=== PATIENT | female | born 1985 | race Two or more races ===

== ENCOUNTER 2023-05-20 14:46 | Inpatient (IN) | payer MEDICAID, OTHER ==
[~2023-05-20] VITALS: Ht 172.7 cm; Wt 64.0 kg
[2023-05-20 15:37] LABS: Hematocrit 40.1 % (41.0-53.0); Hemoglobin 13.5 g/dL (13.5-17.5); Mean Corpuscular Hemoglobin 34.2 pg (28.0-32.0); Mean Corpuscular Hgb Conc. 33.7 g/dL (32.0-36.0); Mean Corpuscular Volume 101.3 fL (80.0-100.0); Red Blood Cells 3.96 10^6/uL (4.5-5.90); Red Cell Distribution Width 14.2 % (11.8-14.3); White Blood Cell 10.2 10^3/uL (4.4-10.8)
[2023-05-20 15:40] LABS: Basophils % (manual) 0 (0.0-2.0); Blast Cells 0; Metamyelocytes % 0; Myelocytes % 0; Promyelocytes % 0; Reactive Lymphocytes 0
[2023-05-20] MEDS: ONDANSETRON HCL 4 MG/2 ML VIAL IM ONE (15:54)
[2023-05-20 15:56] LABS: Alanine Aminotransferase 19 U/L (7-40); Albumin 3.6 g/dL (3.2-4.8); Alkaline Phosphatase 121 U/L (46-116); Anion Gap 18 (5-15); Aspartate Aminotransferase 35 U/L (13-40); Calcium 8.9 mg/dL (8.7-10.4); Carbon Dioxide 16 mmol/L (20-30); Chloride 96 mmol/L (98-107); Glucose 91 mg/dL (74-106); INR 1.92 (0.9-1.15); Lipase 133 U/L (12-53); Potassium 4.1 mmol/L (3.5-5.1); Prothrombin Time 19.3 sec (9.3-11.8); Sodium 130 mmol/L (136-145)
[2023-05-20 15:57] LABS: Total Protein 7.7 g/dL (5.7-8.2)
[2023-05-20 16:00] LABS: BUN/Creatinine Ratio 7.4 (10.0-20.0); Blood Urea Nitrogen < 5 mg/dL (9-23)
[2023-05-20] MEDS: SODIUM CHLORIDE 0.9% 1,000 ML IVB ONE (16:00)
[2023-05-20] MEDS: LORazepam 2MG/ML-1ML VIAL IV ONE (16:02)
[2023-05-20] MEDS: PANTOPRAZOLE 40 MG/10 ML VIAL INJ IV ONE (16:02)
[2023-05-20] MEDS: HYDROmorphone HCL 2 MG/ML VL/or syr IM ONE (16:04)
[2023-05-20] MEDS: METOCLOPRAMIDE HCL 5MG/ml INJ 2ml VIAL IV ONE (16:07)
[2023-05-20 16:30] LABS: Band Neutrophils % (manual) 2; Lymphocytes % (manual) 8 (10.0-50.0); Monocytes % (manual) 4 (0-12)
[2023-05-20 16:31] LABS: Eosinophils % (manual) 3 (0-7); Macrocytosis Slight; Platelet Estimate Adequate
[2023-05-20] MEDS: IOHEXOL 300 MG/ML 100ML BOTTLE IJ ONE (16:38)
[2023-05-20 18:04] LABS: Urine Bacteria None Seen /hpf (None Seen)
[2023-05-20 18:11] LABS: Urine Blood Negative /uL (Negative); Urine Clarity Clear (Clear); Urine Color Light-Orange (Yellow); Urine Mucus FEW (None Seen); Urine Protein, UAD 1+ (Negative); Urine Urobilinogen Normal (Negative); Urine WBC 2 /hpf (0 - 5)
[2023-05-20 18:15] LABS: Urine Specific Gravity > 1.050 (1.001-1.035)
[2023-05-20] MEDS: PIPERACILLIN-TAZO 4.5GM 100 ML IV ONE (19:02)
[2023-05-20] MEDS ORDERED: LORazepam 2MG/ML-1ML VIAL IV PRN (21:45)
[2023-05-20] MEDS ORDERED: ACETAMINOPHEN 325 MG TAB PO PRN (21:45)
[2023-05-20] MEDS ORDERED: DOCUSATE SOD 100 MG CAP PO PRN (21:45)
[2023-05-20] MEDS: SODIUM CHLORIDE 0.9% 1,000 ML IV SCH (22:25)
[2023-05-20] MEDS: levETIRAcetam 500 mg/100ml 100 ML IV SCH (22:43)
[2023-05-20] MEDS: HYDROcodone-ACET 5/325MG TAB PO PRN (22:47)
[2023-05-20] MEDS: METOCLOPRAMIDE HCL 5MG/ml INJ 2ml VIAL IV PRN (22:49)
[2023-05-20] MEDS: MAGNESIUM SULFATE 1GM/100ML 100 ML IV ONE (23:11)
[2023-05-20] MEDS: metroNIDAZOLE 500MG/100ML 100 ML IV SCH (23:15)
[2023-05-20] MEDS ORDERED: MORPHINE SULFATE INJ 2 MG/ml SYRG IV PRN (23:30)
[2023-05-20] MEDS ORDERED: NITROGLYCERIN 0.4 MG SL TAB SL PRN (23:30)
[2023-05-21 06:50] LABS: Basophils # (auto) 0 10 ^3/uL (0-0.2); Eosinophils % (auto) 8.6 % (0.0-7.0); Lymphocytes # (auto) 0.9 10 ^3/uL (0.4-5.4); Monocytes # (auto) 0.6 10 ^3/uL (0-1.3); Nucleated Red Blood Cells % 0.1 %
[2023-05-21 06:56] LABS: Alanine Aminotransferase 13 U/L (7-40); Albumin 3.2 g/dL (3.2-4.8); Alkaline Phosphatase 99 U/L (46-116); Anion Gap 13 (5-15); Aspartate Aminotransferase 26 U/L (13-40); Basophils % (auto) 0.3 % (0.0-2.0); Bilirubin, Total 0.8 mg/dL (0.2-1.0); Calcium 8.2 mg/dL (8.7-10.4); Carbon Dioxide 18 mmol/L (20-30); Chloride 100 mmol/L (98-107); Eosinophils # (auto) 0.6 10 ^3/uL (0-0.8); Glucose 103 mg/dL (74-106); Hematocrit 36.5 % (36.0-46.0); Hemoglobin 12.2 g/dL (12.2-16.2); Lymphocytes % (auto) 14.7 % (10.0-50.0); Mean Corpuscular Hemoglobin 34.4 pg (28.0-32.0); Mean Corpuscular Hgb Conc. 33.6 g/dL (32.0-36.0); Mean Corpuscular Volume 102.5 fL (80.0-100.0); Monocytes % (auto) 9.1 % (0.0-12.0); Neutrophils # (auto) 4.3 10 ^3/uL (1.6-8.6); Neutrophils % (auto) 67.3 % (37.0-80.0); Potassium 4.1 mmol/L (3.5-5.1); Red Blood Cells 3.56 10^6/uL (4.0-5.20); Red Cell Distribution Width 14.2 % (11.8-14.3); Sodium 131 mmol/L (136-145); White Blood Cell 6.4 10^3/uL (4.4-10.8)
[2023-05-21 06:57] LABS: Total Protein 6.9 g/dL (5.7-8.2)
[2023-05-21 06:58] LABS: BUN/Creatinine Ratio 8.3 (10.0-20.0); Blood Urea Nitrogen < 5 mg/dL (9-23)
[2023-05-21 08:40] VITALS: PULSE 113; RESP 16; O2SAT 100
[2023-05-21] MEDS: HYDROmorphone HCL 2 MG/ML VL/or syr IV PRN (08:43)
[2023-05-21] MEDS: cefTRIAXone 1GM/50ML D5W 50 ML IV SCH (11:07)
[2023-05-21] MEDS: PANTOPRAZOLE 40 MG/10 ML VIAL INJ IV SCH (11:07)
[2023-05-21] MEDS: GADOTERATE MEG 10 MMOL/20ml INJ (0.5MMOL/ml) IV ONE (12:51)
[2023-05-21] MEDS: PHYTONADIONE (VIT K)10 MG/ML 1ML VIAL SUBCUT ONE (12:59)
[2023-05-21 19:30] VITALS: PULSE 122; RESP 19; O2SAT 99
[2023-05-21 22:54] VITALS: PULSE 102; RESP 21; O2SAT 99
[2023-05-21] MEDS ORDERED: HYDR1TAB97 PO (23:16)
[2023-05-21] MEDS ORDERED: LEVE500T3 PO (23:16)
[2023-05-21] MEDS ORDERED: TRAM50TA2 PO (23:16)
[2023-05-21] MEDS ORDERED: DROS4TAB PO (23:16)
[2023-05-21] MEDS ORDERED: ACET650T12 PO (23:16)
[2023-05-22] VITALS (7 sets, daily range): BP systolic 102–117; BP diastolic 63–79; PULSE 93–107; RESP 14–20; TEMP 96.6–98; O2SAT 97–100
[2023-05-22 15:00] LABS: COVID19 ANTIGEN SOFIA FIA POSITIVE (NEGATIVE)
[2023-05-22] MEDS: DROSPIRENONE 4 MG PO SCH (16:26)
[2023-05-23] VITALS (8 sets, daily range): BP systolic 92–153; BP diastolic 56–75; PULSE 71–100; RESP 12–20; TEMP 97.4–98.3; O2SAT 94–100
[2023-05-23 05:39] LABS: Basophils # (auto) 0 10 ^3/uL (0-0.2); Eosinophils # (auto) 0.4 10 ^3/uL (0-0.8); Lymphocytes # (auto) 0.9 10 ^3/uL (0.4-5.4); Monocytes # (auto) 0.3 10 ^3/uL (0-1.3); Neutrophils # (auto) 1.5 10 ^3/uL (1.6-8.6); Red Blood Cells 2.95 10^6/uL (4.0-5.20); White Blood Cell 3.2 10^3/uL (4.4-10.8)
[2023-05-23 05:42] LABS: Basophils % (auto) 1.1 % (0.0-2.0); Eosinophils % (auto) 12.1 % (0.0-7.0); Hematocrit 29.7 % (36.0-46.0); Hemoglobin 10.2 g/dL (12.2-16.2); Lymphocytes % (auto) 28.5 % (10.0-50.0); Mean Corpuscular Hemoglobin 34.5 pg (28.0-32.0); Mean Corpuscular Hgb Conc. 34.3 g/dL (32.0-36.0); Mean Corpuscular Volume 100.8 fL (80.0-100.0); Monocytes % (auto) 9.7 % (0.0-12.0); Neutrophils % (auto) 48.6 % (37.0-80.0); Nucleated Red Blood Cells % 0.2 %; Red Cell Distribution Width 13.9 % (11.8-14.3)
[2023-05-23 05:45] LABS: Alanine Aminotransferase 13 U/L (7-40); Albumin 2.7 g/dL (3.2-4.8); Alkaline Phosphatase 76 U/L (46-116); Anion Gap 6 (5-15); Aspartate Aminotransferase 22 U/L (13-40); Bilirubin, Total 0.5 mg/dL (0.2-1.0); Carbon Dioxide 23 mmol/L (20-30); Chloride 105 mmol/L (98-107); Glucose 116 mg/dL (74-106); Potassium 2.8 mmol/L (3.5-5.1); Sodium 134 mmol/L (136-145); Total Protein 5.6 g/dL (5.7-8.2)
[2023-05-23 06:18] LABS: BUN/Creatinine Ratio 13.9 (10.0-20.0); Blood Urea Nitrogen < 5 mg/dL (9-23)
[2023-05-23] MEDS: ASCORBIC ACID 500 MG TAB PO SCH (22:47)
[2023-05-24] VITALS (8 sets, daily range): BP systolic 95–126; BP diastolic 56–76; PULSE 69–98; RESP 17–20; TEMP 97.4–98.3; O2SAT 98–99
[2023-05-24] MEDS: POTASSIUM CHL 20 Meq TABLET PO ONE (12:20)
[2023-05-24] MEDS: ZINC SULFATE 220mg CAP or TAB PO SCH (21:32)
[2023-05-24] MEDS: CHOLECALCIFEROL (VITD3) 1,000UNIT=25mCg TAB PO SCH (21:32)
[2023-05-25] VITALS (7 sets, daily range): BP systolic 103–110; BP diastolic 56–71; PULSE 78–97; RESP 16–18; TEMP 97.5–98; O2SAT 97–100
[2023-05-26] VITALS (8 sets, daily range): BP systolic 96–107; BP diastolic 59–76; PULSE 70–93; RESP 14–21; TEMP 97.3–99.1; O2SAT 95–100
[2023-05-26 13:49] LABS: Basophils # (auto) 0 10 ^3/uL (0-0.2); Eosinophils # (auto) 0.5 10 ^3/uL (0-0.8); Lymphocytes # (auto) 1.3 10 ^3/uL (0.4-5.4); Monocytes # (auto) 0.6 10 ^3/uL (0-1.3)
[2023-05-26 13:52] LABS: Basophils % (auto) 0.9 % (0.0-2.0); Eosinophils % (auto) 9.5 % (0.0-7.0); Hematocrit 34.5 % (36.0-46.0); Hemoglobin 11.5 g/dL (12.2-16.2); Lymphocytes % (auto) 28.1 % (10.0-50.0); Mean Corpuscular Hemoglobin 34.4 pg (28.0-32.0); Mean Corpuscular Hgb Conc. 33.2 g/dL (32.0-36.0); Mean Corpuscular Volume 103.6 fL (80.0-100.0); Monocytes % (auto) 12.7 % (0.0-12.0); Neutrophils # (auto) 2.3 10 ^3/uL (1.6-8.6); Neutrophils % (auto) 48.8 % (37.0-80.0); Nucleated Red Blood Cells % 0.3 %; Red Blood Cells 3.33 10^6/uL (4.0-5.20); Red Cell Distribution Width 14.3 % (11.8-14.3); White Blood Cell 4.7 10^3/uL (4.4-10.8)
[2023-05-26 14:10] LABS: Alanine Aminotransferase 14 U/L (7-40); Alkaline Phosphatase 66 U/L (46-116); Anion Gap 6 (5-15); Calcium 8.3 mg/dL (8.7-10.4); Carbon Dioxide 24 mmol/L (20-30); Chloride 106 mmol/L (98-107); Glucose 97 mg/dL (74-106); Lipase 47 U/L (12-53); Potassium 3.2 mmol/L (3.5-5.1); Sodium 136 mmol/L (136-145)
[2023-05-26 14:11] LABS: Albumin 2.9 g/dL (3.2-4.8); Aspartate Aminotransferase 24 U/L (13-40); Bilirubin, Total 0.4 mg/dL (0.2-1.0)
[2023-05-26 14:15] LABS: BUN/Creatinine Ratio 11.1 (10.0-20.0); Blood Urea Nitrogen < 5 mg/dL (9-23)
[2023-05-27 01:00] VITALS: BP 105/61; PULSE 78; RESP 14; TEMP 97.7; O2SAT 100
[2023-05-27 05:00] VITALS: BP 96/58; PULSE 103; RESP 18; TEMP 98.1; O2SAT 96
[2023-05-27 08:00] VITALS: BP 103/67; PULSE 82; PULSE 87; RESP 16; TEMP 98; O2SAT 98
[2023-05-27 20:00] VITALS: PULSE 87
[2023-05-27 21:00] VITALS: BP 106/70; PULSE 85; RESP 17; TEMP 97.8; O2SAT 99
[2023-05-28 01:00] VITALS: BP 115/75; PULSE 87; RESP 16; TEMP 98.2; O2SAT 100
[2023-05-28 08:00] VITALS: BP 97/63; PULSE 100; PULSE 94; RESP 16; TEMP 98; O2SAT 96
[2023-05-28 09:00] VITALS: BP 97/63; PULSE 94; RESP 16; TEMP 98; O2SAT 96
[2023-05-28 20:00] VITALS: BP 113/73; PULSE 90; PULSE 95; RESP 17; TEMP 98.4; O2SAT 98
[2023-05-28 21:00] VITALS: BP 113/73; PULSE 94; RESP 17; TEMP 98.4; O2SAT 98
[2023-05-29] VITALS (8 sets, daily range): BP systolic 101–116; BP diastolic 55–71; PULSE 81–102; RESP 16–19; TEMP 97.9–98.3; O2SAT 97–100
[2023-05-29] MEDS: IBUPROFEN 400 MG TAB PO PRN (14:59)
[2023-05-29] MEDS: ACYCLOVIR 400 MG TAB PO SCH (21:59)
[2023-05-30] VITALS (8 sets, daily range): BP systolic 102–112; BP diastolic 59–71; PULSE 77–102; RESP 17–20; TEMP 98.1–98.6; O2SAT 96–100
[2023-05-30 01:05] LABS: Basophils # (auto) 0 10 ^3/uL (0-0.2); Basophils % (auto) 1.2 % (0.0-2.0); Eosinophils # (auto) 0.2 10 ^3/uL (0-0.8); Hematocrit 27.6 % (36.0-46.0); Hemoglobin 9.3 g/dL (12.2-16.2); Mean Corpuscular Hemoglobin 34.4 pg (28.0-32.0); Monocytes # (auto) 0.4 10 ^3/uL (0-1.3); White Blood Cell 2.6 10^3/uL (4.4-10.8)
[2023-05-30 01:07] LABS: Eosinophils % (auto) 8.5 % (0.0-7.0); Lymphocytes % (auto) 37.9 % (10.0-50.0); Mean Corpuscular Hgb Conc. 33.8 g/dL (32.0-36.0); Monocytes % (auto) 14.2 % (0.0-12.0); Neutrophils % (auto) 38.2 % (37.0-80.0); Red Cell Distribution Width 13.4 % (11.8-14.3)
[2023-05-30 01:23] LABS: Albumin 2.7 g/dL (3.2-4.8); Alkaline Phosphatase 54 U/L (46-116); Anion Gap 5 (5-15); Aspartate Aminotransferase 18 U/L (13-40); Bilirubin, Total 0.4 mg/dL (0.2-1.0); Calcium 8.2 mg/dL (8.7-10.4); Carbon Dioxide 27 mmol/L (20-30); Chloride 106 mmol/L (98-107); Glucose 104 mg/dL (74-106); Potassium 2.7 mmol/L (3.5-5.1); Sodium 138 mmol/L (136-145); Total Protein 5.5 g/dL (5.7-8.2)
[2023-05-30 01:28] LABS: Alanine Aminotransferase < 9 U/L (7-40); BUN/Creatinine Ratio 11.6 (10.0-20.0); Blood Urea Nitrogen < 5 mg/dL (9-23)
[2023-05-30] MEDS: HYDROmorphone HCL 2 MG/ML VL/or syr IV PRN ×2 (02:47→15:00)
[2023-05-30] MEDS: POTASSIUM CHL 20 Meq TABLET PO ONE (12:20)
[2023-05-31] VITALS (8 sets, daily range): BP systolic 99–116; BP diastolic 63–78; PULSE 76–98; RESP 17–22; TEMP 97.8–98.2; O2SAT 96–100
[2023-06-01] VITALS (8 sets, daily range): BP systolic 101–124; BP diastolic 59–77; PULSE 75–101; RESP 15–20; TEMP 97.5–98.2; O2SAT 96–99
[2023-06-01] MEDS: metroNIDAZOLE 500MG/100ML 100 ML IV SCH (13:58)
[2023-06-02] VITALS (8 sets, daily range): BP systolic 101–118; BP diastolic 56–78; PULSE 53–102; RESP 16–18; TEMP 98–98.6; O2SAT 93–100
[2023-06-02] MEDS: cefTRIAXone 1GM/50ML D5W 50 ML IV SCH (08:39)
[2023-06-03 06:12] VITALS: BP 97/61; PULSE 89; RESP 19; TEMP 98.1; O2SAT 98
[2023-06-03 08:30] VITALS: PULSE 83; RESP 16
[2023-06-03 09:00] VITALS: BP 98/64; PULSE 83; RESP 19; TEMP 98; O2SAT 96
[2023-06-03 10:59] LABS: Basophils # (auto) 0.1 10 ^3/uL (0-0.2); Monocytes # (auto) 0.4 10 ^3/uL (0-1.3); Monocytes % (auto) 11.8 % (0.0-12.0); Neutrophils # (auto) 1.2 10 ^3/uL (1.6-8.6)
[2023-06-03 11:01] LABS: Basophils % (auto) 1.7 % (0.0-2.0); Eosinophils # (auto) 0.4 10 ^3/uL (0-0.8); Eosinophils % (auto) 11.3 % (0.0-7.0); Hemoglobin 8.5 g/dL (12.2-16.2); Lymphocytes # (auto) 1.2 10 ^3/uL (0.4-5.4); Lymphocytes % (auto) 36.3 % (10.0-50.0); Mean Corpuscular Hemoglobin 33.8 pg (28.0-32.0); Mean Corpuscular Hgb Conc. 32.9 g/dL (32.0-36.0); Mean Corpuscular Volume 102.6 fL (80.0-100.0); Neutrophils % (auto) 38.9 % (37.0-80.0); Nucleated Red Blood Cells % 0.1 %; Red Blood Cells 2.53 10^6/uL (4.0-5.20); Red Cell Distribution Width 13.7 % (11.8-14.3); White Blood Cell 3.2 10^3/uL (4.4-10.8)
[2023-06-03 11:16] LABS: Albumin 2.4 g/dL (3.2-4.8); Alkaline Phosphatase 59 U/L (46-116); Anion Gap 6 (5-15); Aspartate Aminotransferase 18 U/L (13-40); Bilirubin, Total 0.2 mg/dL (0.2-1.0); Calcium 7.9 mg/dL (8.7-10.4); Carbon Dioxide 23 mmol/L (20-30); Chloride 110 mmol/L (98-107); Glucose 114 mg/dL (74-106); Lipase 75 U/L (12-53); Potassium 3.2 mmol/L (3.5-5.1); Sodium 139 mmol/L (136-145); Total Protein 4.9 g/dL (5.7-8.2)
[2023-06-03 11:17] LABS: BUN/Creatinine Ratio 11.6 (10.0-20.0); Blood Urea Nitrogen < 5 mg/dL (9-23)
[2023-06-03 11:18] LABS: Alanine Aminotransferase < 9 U/L (7-40)
[2023-06-03 12:24] VITALS: BP 97/54; PULSE 83; RESP 22; TEMP 98.1; O2SAT 94
[2023-06-03 16:55] VITALS: BP 116/73; PULSE 89; RESP 18; TEMP 97.9; O2SAT 97
[2023-06-03 21:00] VITALS: BP 111/77; PULSE 90; RESP 18; TEMP 98.2; O2SAT 99
[2023-06-04 01:00] VITALS: BP 116/66; PULSE 91; RESP 17; TEMP 98.4; O2SAT 99
[2023-06-04 05:00] VITALS: BP 117/68; PULSE 86; RESP 17; TEMP 98.7; O2SAT 98
[2023-06-04 08:36] VITALS: BP 104/62; PULSE 84; RESP 16; TEMP 97.8; O2SAT 98
[2023-06-04] MEDS: POTASSIUM CHL 20 Meq TABLET PO ONE (10:15)
[2023-06-04 21:00] VITALS: BP 106/65; PULSE 86; RESP 17; TEMP 98.2; O2SAT 99
[2023-06-05] MEDS ORDERED: POTASSIUM CHL 20 Meq TABLET PO SCH (10:00)
== END 2023-06-04 21:10 | disposition short-term general hospital (02) | DRG 282 ==
LOC: ER 14:46 → EDSEX 14:46 → EDBD 14:46 → TELE 23:29 → TELE-WESTW 05-21 22:38 → WEST WING 06-03 10:04
PROVIDERS: ADMIT Nurse Practitioner Family; ATTEND Family Medicine
DX: K85.90 Acute pancreatitis without necrosis or infection, unspecified (principal); U07.1 COVID-19; K74.60 Unspecified cirrhosis of liver; E86.0 Dehydration; G40.909 Epilepsy, unspecified, not intractable, without status epilepticus; R16.1 Splenomegaly, not elsewhere classified; D64.9 Anemia, unspecified; G89.4 Chronic pain syndrome; K76.0 Fatty (change of) liver, not elsewhere classified; K86.2 Cyst of pancreas; E87.6 Hypokalemia; Z88.8 Allergy status to other drugs, medicaments and biological substances; Z87.891 Personal history of nicotine dependence; Z78.9 Other specified health status; Z68.1 Body mass index [BMI] 19.9 or less, adult
CPT/HCPCS: 36415; 71045; 74177; 74183; 76700; 76705; 80053; 81001; 81025; 82150; 82270; 83690; 83735; 85007; 85025; 85027; 85610; 86301; 86850; 86900; 86901; 87040; 87086; 87426; 93005; 93970; 96361; 96365; 96366; 96367; 96372; 96375; C9113; G0378; J2405; J2543; J3430; J3490

== ENCOUNTER 2023-06-07 09:28 | Inpatient (IN) | payer MEDICAID ==
[~2023-06-07] VITALS: Ht 172.7 cm; Wt 54.4 kg
[~2023-06-07 09:28] MED LIST: ACET650T12 PO; DROS4TAB PO; HYDR1TAB97 PO; LEVE500T3 PO; TRAM50TA2 PO
[2023-06-07 17:22] VITALS: RESP 18; O2SAT 100
[2023-06-07] MEDS: HYDROmorphone HCL 2 MG/ML VL/or syr IV ONE (18:38)
[2023-06-07] MEDS ORDERED: PROMETHAZINE HCL 6.25 MG/5 ML ORAL SYRUP PO PRN (19:15)
[2023-06-07] MEDS ORDERED: DOCUSATE SOD 100 MG CAP PO PRN (19:15)
[2023-06-07 20:00] VITALS: PULSE 70; RESP 16
[2023-06-07 21:00] VITALS: BP 107/68; PULSE 70; RESP 17; TEMP 97.6; O2SAT 97
[2023-06-07] MEDS: MELATONIN 5 MG TAB PO SCH (21:59)
[2023-06-07] MEDS: levETIRAcetam 500 MG TAB PO SCH (21:59)
[2023-06-07] MEDS: HYDROmorphone HCL 2 MG/ML VL/or syr IV PRN (23:17)
[2023-06-07] MEDS: METOCLOPRAMIDE HCL 5MG/ml INJ 2ml VIAL IV SCH (23:45)
[2023-06-08] VITALS (7 sets, daily range): BP systolic 100–112; BP diastolic 53–74; PULSE 69–88; RESP 16–18; TEMP 36.8; O2SAT 97–98
[2023-06-08 06:18] LABS: Basophils # (auto) 0.1 10 ^3/uL (0-0.2); Eosinophils # (auto) 0.2 10 ^3/uL (0-0.8); Eosinophils % (auto) 8.7 % (0.0-7.0); Hematocrit 27.9 % (36.0-46.0); Hemoglobin 9.1 g/dL (12.2-16.2); Lymphocytes # (auto) 1.1 10 ^3/uL (0.4-5.4); Lymphocytes % (auto) 38.6 % (10.0-50.0); Mean Corpuscular Hemoglobin 33.4 pg (28.0-32.0); Mean Corpuscular Hgb Conc. 32.8 g/dL (32.0-36.0); Mean Corpuscular Volume 101.9 fL (80.0-100.0); Monocytes # (auto) 0.2 10 ^3/uL (0-1.3); Monocytes % (auto) 8.6 % (0.0-12.0); Neutrophils # (auto) 1.2 10 ^3/uL (1.6-8.6); Neutrophils % (auto) 42.1 % (37.0-80.0); Nucleated Red Blood Cells % 0.1 %; Red Blood Cells 2.74 10^6/uL (4.0-5.20); Red Cell Distribution Width 13.4 % (11.8-14.3); White Blood Cell 2.8 10^3/uL (4.4-10.8)
[2023-06-08 06:39] LABS: Alanine Aminotransferase 23 U/L (7-40); Alkaline Phosphatase 61 U/L (46-116); Anion Gap 5 (5-15); Aspartate Aminotransferase 52 U/L (13-40); Calcium 8.4 mg/dL (8.7-10.4); Carbon Dioxide 25 mmol/L (20-30); Chloride 109 mmol/L (98-107); Glucose 112 mg/dL (74-106); Lipase 57 U/L (12-53); Potassium 3.6 mmol/L (3.5-5.1); Sodium 139 mmol/L (136-145)
[2023-06-08 06:41] LABS: Bilirubin, Total 0.2 mg/dL (0.2-1.0); Total Protein 5.7 g/dL (5.7-8.2)
[2023-06-08 06:44] LABS: BUN/Creatinine Ratio 9.8 (10.0-20.0); Blood Urea Nitrogen < 5 mg/dL (9-23)
[2023-06-08] MEDS: PANCREATIC ENZYMES 4200 UNIT CAP PO SCH (08:06)
[2023-06-08] MEDS: ENOXAPARIN SOD 40 MG/0.4 ML SYRINGE SC SCH (09:29)
[2023-06-08] MEDS: MULTIPLE VITAMIN TAB PO SCH (09:29)
[2023-06-08] MEDS: THIAMINE HCL 100 MG TAB PO SCH (09:29)
[2023-06-08] MEDS: FOLIC ACID 1 MG TAB PO SCH (09:29)
[2023-06-08] MEDS: POLYETHYLENE GLYCOL 17 GM PWDR PO SCH (09:36)
[2023-06-08] MEDS ORDERED: HYDR-4902 PO (12:30)
== END 2023-06-08 16:02 | disposition home or self-care (01) | DRG 282 ==
LOC: TELE-CENTR 16:55 → CENTRAL 17:49
PROVIDERS: ADMIT Nurse Practitioner Family; ATTEND Family Medicine
DX: K85.90 Acute pancreatitis without necrosis or infection, unspecified (principal); K74.60 Unspecified cirrhosis of liver; D53.9 Nutritional anemia, unspecified; K86.1 Other chronic pancreatitis; G40.909 Epilepsy, unspecified, not intractable, without status epilepticus; Z88.1 Allergy status to other antibiotic agents; Z88.8 Allergy status to other drugs, medicaments and biological substances
CPT/HCPCS: 36415; 80053; 83690; 85025; G0378

== ENCOUNTER 2024-01-13 04:24 | Emergency (ER) | payer MEDICAID ==
[~2024-01-13] VITALS: Ht 167.6 cm; Wt 72.0 kg
[~2024-01-13 04:24] MED LIST changes: +HYDR-4902 PO
--- NOTE | 2024-01-13 04:40 | ED.PDOC ---
HPI (NEURO) HPI Comments 38-year-old female who came to ER via EMS for seizures. Patient does have history of seizures, last episode was 4 weeks ago, but has fair compliance to her Keppra, gabapentin, and Lamictal. Patient had another witnessed seizure again today, tonic-clonic, lasting a few seconds. No oral trauma or urinary incontinence noted. 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 Information Source: Patient, Emergency Med Personnel Mode of Arrival: EMS Dizziness/Weakness Severity: Unable to do activities Headache Severity: Mild Timing: Hours Duration: Since onset Prehospital treatment: Oxygen Seizure Quality: Tonic-clonic Headache Quality: Throbbing, Aching Headache Location: Generalized Weakness Location: Generalized Numbness Location: Generalized Seizure Location: Generalized Onset: With light exertion Circumstances: Spontaneous Symptoms: Weakness Before: Normal During: LOC After: Confusion, Headache History of: Seizure Disorder Associated Signs and Symptoms: Headache, Weakness Past Medical History PAST MEDICAL HISTORY: Seizures Surgical History: Denies all surgeries 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 Family History Family History: Reviewed,noncontributory to illness Social History Smoker: Non-Smoker Alcohol: Denies ETOH Use Drugs: Denies Drug Use Lives In: Home Constitutional: denies: chills, diaphoresis, fatigue, fever, malaise, sweats, weakness, others EENTM: denies: blurred vision, double vision, ear bleeding, ear discharge, ear drainage, ear pain, ear ringing, eye pain, eye redness, hearing loss, mouth pain, mouth swelling, nasal discharge, nose bleeding, nose congestion, nose pain, photophobia, tearing, throat pain, throat swelling, voice changes, others Respiratory: denies: cough, hemoptysis, orthopnea, SOB at rest, shortness of breath, SOB with excertion, stridor, wheezing, others Cardiovascular: denies: chest pain, dizzy spells, diaphoresis, Dyspnea on exertion, edema, irregular heart beat, left arm pain, lightheadedness, palpitations, PND, syncope, others Gastrointestinal: denies: abdomen distended, abdominal pain, blood streaked bowels, constipated, diarrhea, dysphagia, difficulty swallowing, hematemesis, melena, nausea, poor appetite, poor fluid intake, rectal bleeding, rectal pain, vomiting, others Genitourinary: denies: abnormal vagina bleeding, burning, dyspareunia, dysuria, flank pain, frequency, hematuria, incontinence, pain, , vagina discharg e, urgency, others Neurological: reports: headache, seizure; denies: dizziness, fainting, left sided numbness, left sided weakness, numbness, paresthesia, pre-existing deficit, right sided numbness, right sided weakness, speech problems, tingling, tremors, weakness, others Musculoskeletal: denies: back pain, gout, joint pain, joint swelling, muscle pain, muscle stiffness, neck pain, others Integumetry: denies: bruises, change in color, change in hair/nails, dryness, laceration, lesions, lumps, rash, wounds, others Allergic/Immunocompromised: denies: Difficulty Healing, Frequent Infections, Hives, Itching, others Hematologic/Lymphatic: denies: anemia, blood clots, easy bleeding, easy bruising, swollen glands, others Endocrine: denies: excessive hunger, excessive sweating, excessive thirst, excessive urination, flushing, intolerance to cold, intolerance to heat, unexplained weight gain, unexplained weight loss, others Psychiatric: denies: anxiety, bipolar disorder, depression, hopeless, panic disorder, schizophrenia, sleepless, suicidal, others Physical Exam General Appearance: No Apparent Distress, Normal HEENT: Normal ENT Inspection, Pharynx Normal, TMs Normal Neck: Full Range of Motion, Non-Tender, Normal, Normal Inspection Respiratory: Chest Non-Tender, Lungs Clear, No Accessory Muscle Use, No Respiratory Distress, Normal Breath Sounds Cardiovascular: No Edema, No JVD, No Murmur, No Gallop, Normal Peripheral Pulses, Regular Rate/Rhythm Breast Exam: Deferred Gastrointestinal: No Organomegaly, Non Tender, No Pulsatile Mass, Normal Bowel Sounds, Soft Genitalia: Deferred Pelvic: Deferred Rectal: Deferred Extremities: No calf tenderness, Normal capillary refill, Normal inspection, Normal range of motion, Non-tender, No pedal edema Musculoskeletal : Apperance: Normal Neurologic: Alert, 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 Was a procedure done?: No Differential Diagnosis (SZ) Seizure: Hyperventilation, Psychogenic Seizure, Alcohol Withdrawl, CVA/TIA, Id iopathic, Epilepsy-Status X-Ray, Labs, Meds, VS Vital Signs Date Time Temp Pulse Resp B/P (MAP) Pulse Ox O2 Delivery O2 Flow Rate FiO2 01/13/24 04:56 95 16 95 Room Air* 0 21 01/13/24 04:54 98 16 104/66 (79) 95 01/13/24 04:28 98.0 96 16 109/73 (85) 96 Current Medications Medications (Trade) Dose Ordered Sig/Kamilla Route Start Time Stop Time Status Last Admin Levetiracetam 100 ml @ 400 mls/hr ONCE ONCE IV 01/13/24 04:30 01/13/24 04:44 DC 01/13/24 04:45 Ketorolac Tromethamine (Toradol Injection) 15 mg ONCE ONCE IV 01/13/24 05:30 01/13/24 05:31 DC 01/13/24 05:42 Time of 1ST Reevaluation: 04:33 Reevaluation 1ST: Unchanged Patient Education/Counseling: Diagnosis, Treatment Family Education/Counseling: No Family Present Departure 1 Departure Time of Disposition: 05:50 (Patient had a breakthrough seizure we will let patient with Keppra and discharged home) Impression: Primary Impression: Breakthrough seizure Disposition: 01 HOME / SELF CARE / HOMELESS Condition: Stable Additional Instructions: You had a breakthrough seizure today. It is important to take your seizure medication. You should stay well rested and well hydrated. You should follow up with your regular doctor within 1 week. If your symptoms worsen or you have any other concerns then please return to the emergency room. Discharged With: Self Critical Care Note Critical Care Time?: No Stability Stability form required: No Heart Score Heart Score: Heart Score Response (Comments) Value History N/A 0 EKG N/A 0 Age N/A 0 Risk Factors N/A 0 Troponin N/A 0 Total 0 I personally scribed for BRITTANY HUNT MD ([email or web address]) on 01/13/24 at 04:40. Electronically submitted by Lavelle Kenney ([employer]). I personally scribed for BRITTANY HUNT MD ([email or web address]) on 01/13/24 at 05:07. Electronically submitted by Lavelle Kenney ([email or web address]). BRITTANY HUNT MD Jan 13, 2024 04:40
[2024-01-13] MEDS: levETIRAcetam 1000 mg/100ml 100 ML IV ONE (04:45)
[2024-01-13 04:54] VITALS: BP 104/66
[2024-01-13 04:56] VITALS: PULSE 95; RESP 16; O2SAT 95
[2024-01-13] MEDS: KETOROLAC TROMETH 30 MG/ML 1ML VIAL IV ONE (05:42)
== END 2024-01-13 06:18 | disposition home or self-care (01) ==
LOC: EDBD 04:24 → ER 04:24
DX: G40.909 Epilepsy, unspecified, not intractable, without status epilepticus (principal)
CPT/HCPCS: 96365; 96375; 99284; J1885; J1953